=== PATIENT | male | born 1960 | race Caucasian/White ===

== ENCOUNTER 2017-11-27 12:29 | Emergency (ER) | payer OTHER | END 2017-11-27 15:35 | disposition home or self-care (01) | LOC: FTE 12:29 | DX: H11.32 Conjunctival hemorrhage, left eye (principal) | CPT/HCPCS: 99282; Z7502 ==

== ENCOUNTER 2018-01-03 08:29 | Emergency (ER) | payer OTHER ==
[2018-01-03] MEDS: ALBUTEROL 0.083% (NEB) 2.5 MG/3 ML AMP HHN (11:24)
[2018-01-03] MEDS: IPRATROPIUM (NEB) 0.5 MG/2.5 ML AMP HHN (11:24)
== END 2018-01-03 12:38 | disposition home or self-care (01) ==
LOC: FTE 08:29
DX: R06.2 Wheezing (principal)
CPT/HCPCS: 94664; 99284-25